=== PATIENT | male | born 1975 | race African-American/Black ===

== ENCOUNTER 2021-10-02 13:00 | Emergency (ER) | payer MEDICAID ==
[~2021-10-02] VITALS: Ht 188 cm; Wt 99.3 kg
--- NOTE | 2021-10-02 13:31 | NUR ---
NO ANSWER OUTSIDE OR IN LOBBY AT THIS TIME
[2021-10-02 14:10] VITALS: BP 146/84
--- NOTE | 2021-10-02 14:16 | NUR ---
PT RETURNED TO LOBBY AT THIS TIME
[2021-10-02 15:53] LABS: ALBUMIN 3.9 g/dL (3.4-5.0); ANION GAP 14.4 (8-16); CARBON DIOXIDE 27.5 mmol/L (21-32); CREATININE 1.3 mg/dL (0.6-1.3); POTASSIUM 3.9 mmol/L (3.5-5.1); TOTAL BILIRUBIN 0.5 mg/dL (0.0-1.0)
[2021-10-02 16:17] LABS: BASOPHILS # (AUTO) 0.1 K/uL (0.00-0.22); BASOPHILS % (AUTO) 0.7 % (0.0-2.0); EOSINOPHILS # (AUTO) 0.1 K/uL (0-0.4); EOSINOPHILS % (AUTO) 1.2 % (0.0-4.0); HEMATOCRIT 48.8 % (36-52); HEMOGLOBIN 16.2 g/dL (12.0-18.0); LYMPHOCYTES % (AUTO) 40.3 % (20.5-51.1); MEAN CORPUSCULAR HEMOGLOBIN 29 pg (27-31); MEAN CORPUSCULAR HGB CONC 33 g/dL (33-37); MEAN CORPUSCULAR VOLUME 87.9 fL (80-94); MONOCYTES # (AUTO) 0.8 K/uL (0.8-1.0); MONOCYTES % (AUTO) 8.4 % (1.7-9.3); NEUTROPHILS # (AUTO) 4.9 K/uL (1.8-7.7); NEUTROPHILS % (AUTO) 49.4 % (42.2-75.2); PLATELET COUNT (AUTO) 408 K/uL (140-450); RED BLOOD CELL COUNT(AUTO) 5.55 MIL/uL (4.20-6.10); RED CELL DISTRIBUTION WIDTH 14.6 % (11.6-13.7)
[2021-10-02] MEDS ORDERED: DICYCLOMINE HCL LIQUID 20 MG, ALUMINUM HYD/MAG/SIMETHICONE 30 ML, LIDOCAINE VISCOUS 2% ... PO ONE ×3 (16:35)
[2021-10-02] MEDS ORDERED: ONDANSETRON 4 MG ODT PO ONE (16:35)
--- NOTE | 2021-10-02 16:45 | NUR ---
46 y/o male from home c/o abd pain and upper back pain x 3 days. Pt states mild nausea/vomiting intermittently. states 5/10 pain at this time and does not want medication for pain. Skin warm, dry, intact. Awake and alert. Bed locked and in lowest position. Abd soft, flat, nontender to palp. Bowel sounds present. medhx: denies
[2021-10-02] MEDS ORDERED: DICYCLOMINE HCL LIQUID 10 MG/5 ML UDC ONE (16:49)
[2021-10-02] MEDS ORDERED: ALUMINUM HYD/MAG/SIMETHICONE 30 ML UDC ONE (16:49)
[2021-10-02] MEDS ORDERED: ONDA-188 SL (17:32)
[2021-10-02] MEDS ORDERED: SIME180C9 PO (17:32)
[2021-10-02] MEDS ORDERED: FAMO-92 PO (17:32)
[2021-10-02 17:40] VITALS: BP 138/77
--- NOTE | 2021-10-02 17:41 | NUR ---
Patient discharged with v/s stable. Written and verbal after care instructions given and explained. Patient alert, oriented and verbalized understanding of instructions. Ambulatory with steady gait. All questions addressed prior to discharge. ID band removed. Patient advised to follow up with PMD. Rx of Pepcid, Zofran, and Simethicone given. Patient educated on indication of medication including possible reaction and side effects. Opportunity to ask questions provided and answered.
== END 2021-10-02 17:41 | disposition home or self-care (01) ==
LOC: MED 13:00
DX: K29.70 Gastritis, unspecified, without bleeding (principal); R11.10 Vomiting, unspecified; F17.210 Nicotine dependence, cigarettes, uncomplicated; F12.90 Cannabis use, unspecified, uncomplicated; Z79.899 Other long term (current) drug therapy
CPT/HCPCS: 36415; 76705; 80053; 83690; 85025; 99284; Q0092; Q0162

== ENCOUNTER 2022-03-05 17:32 | Emergency (ER) | payer MEDICAID, OTHER ==
[~2022-03-05] VITALS: Ht 188 cm; Wt 95.7 kg
[~2022-03-05 17:32] MED LIST: FAMO-92 PO; ONDA-188 SL; SIME180C9 PO
[2022-03-05 17:36] VITALS: BP 134/86
[2022-03-05] MEDS ORDERED: ASPIRIN 81 MG TAB.CHEW PO ONE ×3 (17:55→18:25)
--- NOTE | 2022-03-05 17:55 | NUR ---
46 Y/O M C/O LEFT-SIDED CHEST PAIN X 15 MINS WITH TWO EPISODES OF SOB ON TUESDAY AND TUESDAY. PT STATES 8/10, STABBING/SHARP/CONSTANT, RADIATING TO RIGHT BACK. (+) NUMBNESS, BILATERAL HANDS. PT ALSO REPORTS 1 EPISODE OF VOMITING. NO MEDS TAKEN. PT PLACED ONTO SUPPLY SERVICE WORKER. BED LOCKED IN LOWEST POSITION, SIDE RAILS X 1. PMH: NONE MEDS: NONE NKA
--- NOTE | 2022-03-05 18:25 | NUR ---
Patient to be transferred to [facility]. Is being transferred due to higher level of care. Receiving facility has accepting physician and available space. ER physician has signed transfer form. Patient or responsible democrat has agreed to transfer and signed form. Patient belongings inventoried and will be sent with patient. Copy of nursing notes, lab reports, EKG, Physicians Orders and X-rays to be sent with patient. Report called to ALIYA Bullock at receiving facility. [facility] ambulance service has been called for transfer. [facility] at bedside.
--- NOTE | 2022-03-05 18:25 | NUR ---
[facility] crew at bedside
--- NOTE | 2022-03-05 18:27 | NUR ---
ASA 81MG X 2 ADMIN'D
--- NOTE | 2022-03-05 18:30 | NUR ---
Report given to ALIYA Bullock.
[2022-03-05 18:34] LABS: BASOPHILS # (AUTO) 0.1 K/uL (0.00-0.22); BASOPHILS % (AUTO) 0.9 % (0.0-2.0); EOSINOPHILS # (AUTO) 0.2 K/uL (0-0.4); EOSINOPHILS % (AUTO) 1.8 % (0.0-4.0); HEMATOCRIT 48.9 % (36-52); LYMPHOCYTES # (AUTO) 3.5 K/uL (2.0-11.5); LYMPHOCYTES % (AUTO) 39.1 % (20.5-51.1); MEAN CORPUSCULAR HEMOGLOBIN 29 pg (27-31); MEAN CORPUSCULAR HGB CONC 33 g/dL (33-37); MEAN CORPUSCULAR VOLUME 89.2 fL (80-94); MONOCYTES % (AUTO) 11.4 % (1.7-9.3); NEUTROPHILS # (AUTO) 4.2 K/uL (1.8-7.7); NEUTROPHILS % (AUTO) 46.8 % (42.2-75.2); PLATELET COUNT (AUTO) 303 K/uL (140-450); RED BLOOD CELL COUNT(AUTO) 5.48 MIL/uL (4.20-6.10); RED CELL DISTRIBUTION WIDTH 14.5 % (11.6-13.7); WHITE BLOOD COUNT (AUTO) 8.9 K/uL (4.8-10.8)
[2022-03-05 18:58] LABS: ANION GAP 15.6 (8-16); ASPARTATE AMINOTRANSFERASE 30 U/L (15-37); CARBON DIOXIDE 23.4 mmol/L (21-32); CHLORIDE 104 mmol/L (98-107); CREATININE 1.5 mg/dL (0.6-1.3); GFR ARICAN-AMERICAN 65 mL/min (>90); GLUCOSE 107 mg/dL (74-106); SODIUM SERUM 139 mmol/L (136-145); TOTAL BILIRUBIN 0.8 mg/dL (0.0-1.0); UREA NITROGEN, BLOOD 16 mg/dL (7-18)
--- NOTE | 2022-03-05 19:26 | NUR ---
CONTACTED [facility] [place], [place], [place]-I 376 VALUE PROVIDED TO RECEIVING RN.
--- NOTE | 2022-03-05 20:14 | NUR ---
PHONES RETURNED TO [facility] FAXED TO [facility] [place] [facility]
--- NOTE | 2022-03-05 20:21 | NUR ---
FAX COMPLETE 2020
== END 2022-03-05 18:25 | disposition short-term general hospital (02) ==
LOC: MED 17:32
DX: I21.3 ST elevation (STEMI) myocardial infarction of unspecified site (principal); Z20.822 Contact with and (suspected) exposure to COVID-19; I48.91 Unspecified atrial fibrillation; R11.10 Vomiting, unspecified; F17.200 Nicotine dependence, unspecified, uncomplicated; J45.909 Unspecified asthma, uncomplicated; Z79.899 Other long term (current) drug therapy
CPT/HCPCS: 36415; 80053; 84484; 85025; 99285

== ENCOUNTER 2023-10-30 13:05 | Emergency (ER) | payer OTHER ==
[~2023-10-30] VITALS: Ht 188 cm; Wt 89.4 kg
[2023-10-30 14:46] VITALS: BP 149/99; PULSE 59; RESP 18; TEMP 98.2; O2SAT 98
[2023-10-30] MEDS ORDERED: KETOROLAC 30 MG/ML VIAL IM ONE (15:10)
[2023-10-30] MEDS ORDERED: ACET-8905 PO (15:42)
[2023-10-30] MEDS ORDERED: NAPR-1704 PO (15:42)
[2023-10-30] MEDS ORDERED: CAPS1ADH5 TP (15:42)
[2023-10-30] MEDS ORDERED: DICL100G32 TP (15:42)
[2023-10-30] MEDS ORDERED: KETOROLAC 30 MG/ML VIAL ONE (16:23)
[2023-10-30 16:30] VITALS: BP 149/99; PULSE 59; RESP 18; TEMP 98.2; O2SAT 98
== END 2023-10-30 16:32 | disposition home or self-care (01) ==
LOC: MED 13:05
DX: M54.30 Sciatica, unspecified side (principal); J45.909 Unspecified asthma, uncomplicated; Z79.899 Other long term (current) drug therapy
CPT/HCPCS: 72100; 96372; 99283; J1885